=== PATIENT | female | born 1980 | race African-American/Black ===

== ENCOUNTER 2023-01-11 02:45 | Inpatient (IN) | payer OTHER ==
[2023-01-11 03:03] VITALS: BMI 19.3
[2023-01-11] MEDS ORDERED: NALOXONE HCL (KLOXXADO) 8 MG SPRAY NS PRN (03:25)
[2023-01-11] MEDS ORDERED: hydrOXYzine PAMOATE 25 MG CAPSULE (FP) PO PRN (03:25)
[2023-01-11] MEDS ORDERED: ACETAMINOPHEN 325 MG TABLET (FP) PO PRN (03:25)
[2023-01-11] MEDS ORDERED: NICOTINE POLACRILEX 2 MG GUM BUC PRN (03:25)
[2023-01-11] MEDS ORDERED: ONDANSETRON *ODT* 4 MG TABLET SL PRN (03:25)
[2023-01-11] MEDS ORDERED: MAG HYDROX/AL HYDROX/SIMETH 30 ML UNIT-DOSE CUP PO PRN (03:25)
[2023-01-11] MEDS ORDERED: BENZONATATE 200 MG CAPSULE PO PRN (03:25)
[2023-01-11] MEDS ORDERED: IBUPROFEN 400 MG TABLET (FP) PO PRN (03:25)
[2023-01-11] MEDS ORDERED: LOPERAMIDE HCL 2 MG CAPSULE PO PRN (03:25)
[2023-01-11] MEDS ORDERED: NALOXONE HCL 0.4 MG/ML VIAL IM PRN (03:25)
[2023-01-11] MEDS ORDERED: POLYETHYLENE GLYCOL (HEALTHYLAX) 3350 17 GM PACKET PO PRN (03:25)
[2023-01-11] MEDS ORDERED: METHOCARBAMOL 500 MG TABLET PO PRN (03:25)
[2023-01-11] MEDS ORDERED: guaiFENesin 600 MG TABLET.ER (FP) PO PRN (03:25)
[2023-01-11] MEDS ORDERED: BENZOCAINE/MENTHOL (CHLORASEPTIC ) LOZENGE MM PRN (03:25)
[2023-01-11] MEDS ORDERED: BISMUTH SUBSALICYLATE 524 MG/30 ML PO PRN (03:25)
[2023-01-11] MEDS ORDERED: DICYCLOMINE HCL 10 MG CAPSULE PO PRN (03:25)
[2023-01-11] MEDS ORDERED: MAGNESIUM HYDROX 2400MG/30ML ORAL SUSPENSION 30 ML CUP PO PRN (03:25)
[2023-01-11] MEDS ORDERED: diazePAM 5 MG TABLET PO PRN (10:00)
[2023-01-11] MEDS: NICOTINE 21 MG/24 HOURS TOPICAL PATCH TD SCH (10:11)
[2023-01-11] MEDS: PRENATAL VITAMINS W/ FOLIC ACID TABLET (FP) PO SCH (10:11)
[2023-01-11] MEDS: diazePAM 5 MG TABLET PO SCH ×3 (10:11→22:19)
[2023-01-11 11:41] LABS: HEMATOCRIT 24.8 % (32.4-45.2); MCH 16.8 pg (25.7-33.7); MCHC 28.2 g/dl (32.0-36.0); MEAN CELL VOLUME 59.6 fl (80-96); MEAN PLT VOLUME 8.8 fl (7.5-11.1); PLATELET COUNT 484 10^3/uL (134-434); RBC 4.16 M/mm3 (3.60-5.2); WHITE BLOOD COUNT 7.5 K/mm3 (4.0-10.0)
[2023-01-11 11:42] LABS: POTASSIUM 4.5 mmol/L (3.5-5.1)
[2023-01-11 11:45] LABS: ALBUMIN 3.9 g/dl (3.4-5.0); CALCIUM 9.6 mg/dL (8.5-10.1)
[2023-01-11 11:46] LABS: BLOOD UREA NITROGEN 9.8 mg/dL (7-18)
[2023-01-11 11:48] LABS: CREATININE 0.7 mg/dL (0.55-1.3)
[2023-01-11 11:50] LABS: BILIRUBIN,TOTAL 0.4 mg/dL (0.2-1); TOT PROT 7.8 g/dl (6.4-8.2)
[2023-01-11 13:21] LABS: HIV INTERPRETATION NEGATIVE (NEGATIVE)
[2023-01-11] MEDS: IBUPROFEN 600 MG TABLET (FP) PO PRN (16:43)
[2023-01-11] MEDS ORDERED: FERROUS SO4 300 MG/5 ML ORAL SOLN UNIT DOSE CUPS PO SCH (22:00)
[2023-01-11] MEDS: FERROUS SO4 325 MG TABLET (FP) PO SCH (22:19)
[2023-01-11] MEDS: MELATONIN 5 MG TABLETS PO SCH (22:19)
[2023-01-11] MEDS: THIAMINE HCL 100 MG TABLET (FP) PO SCH (22:19)
[2023-01-12] MEDS: IBUPROFEN 600 MG TABLET (FP) PO PRN ×2 (05:30→12:16)
[2023-01-12] MEDS: diazePAM 5 MG TABLET PO SCH ×4 (06:00→22:56)
[2023-01-12] MEDS: NICOTINE 21 MG/24 HOURS TOPICAL PATCH TD SCH (10:04)
[2023-01-12] MEDS: FERROUS SO4 325 MG TABLET (FP) PO SCH ×2 (10:04→22:47)
[2023-01-12] MEDS: PRENATAL VITAMINS W/ FOLIC ACID TABLET (FP) PO SCH (10:04)
[2023-01-12 11:30] LABS: HEMATOCRIT 24.4 % (32.4-45.2); MCHC 27.5 g/dl (32.0-36.0); MEAN CELL VOLUME 60.4 fl (80-96); MEAN PLT VOLUME 8.9 fl (7.5-11.1); PLATELET COUNT 445 10^3/uL (134-434); RBC 4.04 M/mm3 (3.60-5.2); RDW 21.1 % (11.6-15.6); WHITE BLOOD COUNT 5.7 K/mm3 (4.0-10.0)
[2023-01-12 11:31] LABS: MCH 16.6 pg (25.7-33.7)
[2023-01-12 11:33] LABS: HEMOGLOBIN 6.7 GM/dL (10.7-15.3)
[2023-01-12 11:47] LABS: IRON SERUM 12 ug/dL (50-175); TOTAL IRON BINDING CAPACITY 390 ug/dL (250-450)
[2023-01-12 17:27] VITALS: BP 122/61; PULSE 75; RESP 16; TEMP 97.5
[2023-01-12] MEDS: THIAMINE HCL 100 MG TABLET (FP) PO SCH (22:47)
[2023-01-12] MEDS: MELATONIN 5 MG TABLETS PO SCH (22:47)
[2023-01-13] MEDS ORDERED: diazePAM 5 MG TABLET PO SCH (06:00)
[2023-01-14] MEDS ORDERED: diazePAM 5 MG TABLET PO SCH (06:00)
[2023-01-15] MEDS ORDERED: diazePAM 5 MG TABLET PO ONE (06:00)
== END 2023-01-12 22:55 | disposition short-term general hospital (02) | DRG 774 ==
LOC: YASAS 02:45 → Y3N 03:33
PROVIDERS: ADMIT Allergy & Immunology; ATTEND Surgery
PROC: HZ2ZZZZ Detoxification Services for Substance Abuse Treatment (ICD-10-PCS; principal; 2023-01-11)
DX: F10.230 Alcohol dependence with withdrawal, uncomplicated (principal); F14.20 Cocaine dependence, uncomplicated; F17.210 Nicotine dependence, cigarettes, uncomplicated; F19.24 Other psychoactive substance dependence with psychoactive substance-induced mood disorder; D64.9 Anemia, unspecified; J45.20 Mild intermittent asthma, uncomplicated
CPT/HCPCS: 36415; 80053; 81025; 83540; 83550; 85027; 86780; 87389; 87635; 87811; 93005; 93010

== ENCOUNTER 2023-01-12 16:46 | Inpatient (IN) | payer OTHER ==
[2023-01-12 17:49] VITALS: BMI 20.7
[2023-01-12 18:37] LABS: POTASSIUM 5.1 mmol/L (3.5-5.1)
[2023-01-12 18:38] LABS: BASO % 1.2 % (0-2.0); EOS % 1.6 % (0-4.5); HEMATOCRIT 24.5 % (32.4-45.2); LYMPH % 32.2 % (8-40); MCHC 27.6 g/dl (32.0-36.0); MEAN CELL VOLUME 60.6 fl (80-96); MEAN PLT VOLUME 9.1 fl (7.5-11.1); MONO % 7.9 % (3.8-10.2); NEUT % 57.1 % (42.8-82.8); PLATELET COUNT 434 10^3/uL (134-434); RBC 4.04 M/mm3 (3.60-5.2); RDW 20.9 % (11.6-15.6); WHITE BLOOD COUNT 6.6 K/mm3 (4.0-10.0)
[2023-01-12 18:40] LABS: ALBUMIN 3.5 g/dl (3.4-5.0); BLOOD UREA NITROGEN 14.3 mg/dL (7-18); CALCIUM 9.1 mg/dL (8.5-10.1); MCH 16.7 pg (25.7-33.7)
[2023-01-12 18:42] LABS: HEMOGLOBIN 6.8 GM/dL (10.7-15.3)
[2023-01-12 18:43] LABS: CREATININE 0.7 mg/dL (0.55-1.3)
[2023-01-12 18:44] LABS: BILIRUBIN,TOTAL 0.3 mg/dL (0.2-1); TOT PROT 7.4 g/dl (6.4-8.2)
[2023-01-12 19:18] VITALS: RESP 16
[2023-01-12 20:39] LABS: ANISOCYTOSIS 2+
[2023-01-12 20:40] LABS: PLATELET ESTIMATE ADEQUATE
[2023-01-12 23:56] VITALS: BP 150/73; PULSE 68; TEMP 98.8
== END 2023-01-13 03:00 | disposition left against medical advice (07) | DRG 663 ==
LOC: JER 16:46 → JERBED 18:59 → OBSVTOIN 01-13 01:28 → J6S 01-13 01:57
PROVIDERS: ADMIT Internal Medicine; ATTEND Internal Medicine
DX: D64.89 Other specified anemias (principal); J45.909 Unspecified asthma, uncomplicated; F17.210 Nicotine dependence, cigarettes, uncomplicated
CPT/HCPCS: 36415; 36430; 80053; 82272; 84703; 85025; 86850; 86900; 86901; 86922; 99285-25; G0378; P9058

== ENCOUNTER 2024-05-30 08:42 | Emergency (ER) | payer OTHER ==
[2024-05-30 08:49] VITALS: BP 130/73; PULSE 87; RESP 18; TEMP 98.5; BMI 20.2
[2024-05-30 09:39] LABS: EPI CELLS >36 /uL (0-25.1); HYALINE CASTS 1 /uL (0-3.1); PH,URINE 5.5 (5.0-8.0); URINE APPEARANCE CLOUDY; URINE BACTERIA 442 /uL (0-1359); URINE BILIRUBIN NEGATIVE (NEGATIVE); URINE COLOR YELLOW; URINE GLUCOSE (UA) NEGATIVE (NEGATIVE); URINE KETONE NEGATIVE (NEGATIVE); URINE LEUK ESTERASE 2+ (NEGATIVE); URINE NITRITE NEGATIVE (NEGATIVE); URINE PROTEIN NEGATIVE (NEGATIVE); URINE RBC 13 /uL (0-23.9); URINE UROBILINOGEN 0.2 mg/dL (0.2-1.0); URINE WBC 118 /uL (0-25.8)
== END 2024-05-30 10:19 | disposition home or self-care (01) ==
LOC: JER 08:42
DX: N39.0 Urinary tract infection, site not specified (principal); R10.30 Lower abdominal pain, unspecified; N91.2 Amenorrhea, unspecified
CPT/HCPCS: 81003; 84703; 99283-25